=== PATIENT | male | born 1990 | race Caucasian/White ===

== ENCOUNTER 2016-09-09 13:45 | Emergency (ER) | payer OTHER ==
--- NOTE | ~2016-09-09 | CR20 ---
[facility]. [facility] A Service of [facility] & [facility] [place] RADIOLOGY TEXT RESULTS PATIENT: TEE CORDERO LOCATION: SED : [birth year] UNIT #: [id number] AGE: [address]: Sandy Mora APRN SEX: M ORDER DR: [id number] [place] [id number] E MR#: [id number] Acc #: [id number] NAME: TEE CORDERO : 1990 SEX: M STUDY DATE/TIME: 09/09/2016 13:44 UNIT: SED ROOM: STUDY DESCRIPTION: CR Ankle Min 3 Views Lt Attending Physician: Sandy Mora A.P.R.N. Ordering Physician: Sandy Mijares A.P.R.N. Primary Care Physician: Primary Care Physician No MEDICAL IMAGING REPORT This report is preliminary unless electronic signature is present. EXAM 3 views left ankle. INDICATIONS Pain after stepping in a hole yesterday. FINDINGS No acute fracture or subluxation of the left ankle is identified. Patient does have an old lateral malleolar fracture. There is no ankle effusion. There is probably some mild soft tissue swelling overlying the lateral malleolus. IMPRESSION No acute fracture or subluxation identified although I think the patient does have some mild soft tissue swelling overlying the lateral malleolus. Dictated by... Key Martínez M.D. THIS IS AN ELECTRONICALLY VERIFIED REPORT Key Martínez M.D. at 09/10/2016 12:27 PM AFF/psc TD: 09/09/2016 20:51 JOB #: [id number] MEDICAL IMAGING REPORT Page 1 of 1
[~2016-09-09 13:45] MED LIST: AMOXICILLIN500 M1 PO; ANTIVERT12.5 MG PO; BACTRIM DS TABL1 TA1 PO; BACTRIM DS TABL1 TAB PO; BACTROBAN15 GM TOP; BENADRYL25 M3 PO; CIPRO PO; DICLOFENAC PO; FAMOTIDINE PO; FLONASE 0.05% N16 G1; FLOXIN10 ML AU; IBUPROFEN800 MG PO; NO MEDICATIONS; PREDNISONE PO; TESSALON PERLE100 M1 DOB; TYLENOL #3 PO; VOLTAREN75 MG PO; ZYRTEC10 M1 PO
== END 2016-09-09 15:09 | disposition home or self-care (01) ==
LOC: SED 13:45
DX: S93.402A Sprain of unspecified ligament of left ankle, initial encounter (principal); F17.210 Nicotine dependence, cigarettes, uncomplicated; X50.1XXA Overexertion from prolonged static or awkward postures, initial encounter; Y92.009 Unspecified place in unspecified non-institutional (private) residence as the place of occurrence of the external cause
CPT/HCPCS: 29540; 73610; 99283